=== PATIENT | female | born 1955 | race Caucasian/White ===

== ENCOUNTER → 2018-08-02 | Outpatient (CLI) | payer BC ==
--- NOTE | 2018-08-02 17:54 | RAD ---
Left lower extremity venous ultrasound: History: Left thigh pain, Duplex evaluation including grayscale, color flow and spectral Doppler analysis was performed. The femoral and popliteal veins show no filling defects to suggest DVT. Posterior tibial veins in the calf are unremarkable. Peroneal veins are not optimally visualized. Follow-up study may be of benefit. IMPRESSION: 1. There is no sonographic evidence of deep vein thrombosis in the left femoral through popliteal veins. 2. No evidence of deep venous thrombosis in the posterior tibial veins. 3. Limited evaluation of peroneal veins, follow-up study may be of benefit to exclude DVT. Electronically signed by: Aron Morales MD (08/02/2018 5:51 PM) [facility]
--- NOTE | 2018-08-03 08:24 | RAD ---
Left femur, 2 views, 08/02/2018: HISTORY: Pain No fracture or destructive bony lesion is seen. There is mild degenerative change at the left hip joint. IMPRESSION: No acute bony abnormality is detected. Left knee, 3 views, 08/02/2018: HISTORY: Knee pain There is mild narrowing of the knee joint space medially with mild marginal spurring. There is mild spurring at the patellofemoral articulation. No fracture or subluxation is evident. No large joint effusion is seen. IMPRESSION: 1. Mild degenerative change. 2. No acute bony abnormality is detected. Electronically signed by: Jimenez Henriquez MD (08/03/2018 8:21 AM) [facility]
== END ==
LOC: US 17:08
PROVIDERS: ATTEND Family Medicine
DX: M79.605 Pain in left leg (principal)
CPT/HCPCS: 73552; 73562; 93971